=== PATIENT | male | born 1995 | race Caucasian/White ===

== ENCOUNTER 2018-02-12 13:24 | Emergency (ER) | payer BC, OTHER ==
[2018-02-12 13:30] VITALS: RESP 18
--- NOTE | 2018-02-12 14:31 | ED ---
General Adult HPI - General Chief complaint: Back Pain/Injury Stated complaint: Back pain Time Seen by Provider: 02/12/18 13:52 Source: patient, RN notes reviewed Mode of arrival: ambulatory Limitations: no limitations - History of Present Illness Initial comments: 23-year-old male presents to the emergency determine for a chief complaint of back pain 2 weeks. Patient states he lifts a lot of heavy objects at his work at [employer] and thinks he overdid it. Patient states the pain has worsened in the past few days because he has been working a lot. Patient has tried Motrin for pain which helps somewhat. Patient denies any radiating pain down either leg bilaterally. Patient denies any saddle anesthesia. Patient denies bladder or bowel changes and states he is urinating regularly. Patient denies history of IV drug use. Patient states the pain is exacerbated from standing and walking and feels better when he is sitting. Patient has no other complaints at this time including shortness of breath, chest pain, abdominal pain, nausea or vomiting, headache, or visual changes. - Related Data Previous Rx's Medication Instructions Recorded Cyclobenzaprine [Flexeril] 10 mg PO TID #9 tab 02/12/18 Ibuprofen [Motrin] 600 mg PO Q8HR PRN #20 tab 02/12/18 Allergies Allergy/AdvReac Type Severity Reaction Status Date / Time No Known Allergies Allergy Verified 02/12/18 13:37 Review of Systems ROS Statement: Those systems with pertinent positive or pertinent negative responses have been documented in the HPI. ROS Other: All systems not noted in ROS Statement are negative. Past Medical History Past Medical History: Skin Disorder Additional Past Medical History / Comment(s): ACNE, FREQ NOSE BLEEDS History of Any Multi-Drug Resistant Organisms: None Reported Additional Past Surgical History / Comment(s): WISDOM TEETH REMOVAL Past Anesthesia/Blood Transfusion Reactions: No Reported Reaction Past Psychological History: No Psychological Hx Reported Smoking Status: Never smoker Past Alcohol Use History: Occasional Past Drug Use History: None Reported General Exam Limitations: no limitations General appearance: alert, in no apparent distress Respiratory exam: Present: normal lung sounds bilaterally. Absent: respiratory distress, wheezes, rales, rhonchi, stridor Cardiovascular Exam: Present: regular rate, normal rhythm, normal heart sounds. Absent: systolic murmur, diastolic murmur, rubs, gallop, clicks Extremities exam: Present: full ROM (Full range of motion of bilateral knees ankles and feet.), normal capillary refill (Refill less than 2 seconds in the lower extremities bilaterally.), other (PD and PT pulse 2+ on lower extremities bilat.). Absent: tenderness Back exam: Present: tenderness (Patient has mild tenderness of the lumbar spine. ), paraspinal tenderness (Patient also has mild lower paraspinal tenderness.). Absent: full ROM (Patient has about 45 of flexion and 20 extension of the low back. Patient is able to twist and laterally bend.), CVA tenderness (R), CVA tenderness (L) Neurological exam: Present: alert, oriented X3, CN II-XII intact Course Vital Signs 02/12/18 13:27 Temperature 98.7 F Pulse Rate 81 Respiratory 18 Rate Blood Pressure 121/65 O2 Sat by Pulse 98 Oximetry Medical Decision Making - Medical Decision Making 23-year-old male presents to the emergency department for a chief complaint of bilateral lower back pain 2 weeks. Patient states he lifts heavy objects at his work at [employer] and believes he overdid it at work. It has worsened in the past few days because he has been working a lot. Patient states standing and walking makes it worse and sitting makes it better. Patient denies IV drug use , saddle anesthesia, shooting pains or numbness in the lower extremities, or bladder or bowel changes. On exam patient has about 45 flexion of the lumbar spine and about 20 extension. Patient has pain with both of these movements. Patient is able to twist and laterally bend without difficulty. Patient also has some lumbar tenderness. Neurovascular intact in lower extremities bilaterally. X-ray was obtained which demonstrates no acute fracture or dislocation. There may be degenerative disc changes for which patient can follow up outpatient. He will be given Motrin and Tylenol in the emergency department. He will return to the emergency department if he has any worsening symptoms which were discussed with him. Disposition Clinical Impression: Mechanical back pain Disposition: HOME SELF-CARE Condition: Good Instructions: Acute Low Back Pain (ED) Additional Instructions: Please take Motrin and Flexeril for pain. Return to the emergency department if you have any worsening symptoms including bladder or bowel changes, shooting pain or numbness in the lower extremities, or any other worsening symptoms. Follow up with primary care in 1-2 days. Prescriptions: Cyclobenzaprine [Flexeril] 10 mg PO TID #9 tab Ibuprofen [Motrin] 600 mg PO Q8HR PRN #20 tab PRN Reason: Pain Is patient prescribed a controlled substance at d/c from ED?: No Referrals: Jaun Mendoza MD [Primary Care Provider] - 1-2 days Time of Disposition: 15:16
--- NOTE | 2018-02-12 15:01 | XR ---
Lumbar spine HISTORY: Low back pain 3 views of the lower spine, no comparisons Lumbar vertebral bodies show preserved height, alignment, and bone mineralization. There may be a sli ght spinal curvature. There is loss of disc height L5-S1. IMPRESSION: Loss of disc height L5-S1, consider lumbar MRI for possible degenerative disc disease.
[2018-02-12 15:23] VITALS: BP 132/80; PULSE 72; TEMP 97.5
== END 2018-02-12 15:27 | disposition home or self-care (01) ==
LOC: EC 13:24
DX: M54.5 Low back pain (principal); X50.0XXA Overexertion from strenuous movement or load, initial encounter; Y92.69 Other specified industrial and construction area as the place of occurrence of the external cause; Y99.0 Civilian activity done for income or pay
CPT/HCPCS: 72100; 99283